=== PATIENT | female | born 1990 | race Caucasian/White ===

== ENCOUNTER 2025-08-01 15:57 | Outpatient (REF) | payer OTHER, SELFPAY ==
--- NOTE | 2025-08-01 15:50 | ENDO_PTH ---
PATIENT: Jennifer York LOC: [facility] U#:[id number] AGE/SX: 35/F ROOM: RE08/01/[address]: Meera Anguiano DO : 1990 BED: DIS: 08/01/2025 SPEC #: [id number] RECD: 08/01/25 17:58 STATUS: SCOTT REQ #: [id number] REI: 08/01/25 15:[address]: Meera Anguiano DEPT: Surgical Specimen RECD BY: Christy Manzo ENTERED: 08/01/25 17:58 SP TYPE: Endo OTHR DR: Unknown,Unknown Tissues: 1 - ENDOCERVICAL BX/CURRETTE 2 - CERVICAL BIOPSY Procedures: GROSS AND MICRO LEVEL 4 Comments: [id number]
== END 2025-08-01 15:58 | disposition home or self-care (01) ==
LOC: LBN 15:57
PROVIDERS: Visit Provider Obstetrics & Gynecology
DX: D26.0 Other benign neoplasm of cervix uteri (principal)
CPT/HCPCS: 88305